=== PATIENT | female | born 1945 | race Caucasian/White ===

== ENCOUNTER → 2017-08-16 | Outpatient (CLI) | payer BC, MEDICARE | END | disposition home or self-care (01) | LOC: CFH 11:16 | PROVIDERS: ATTEND Internal Medicine | DX: E04.2 Nontoxic multinodular goiter (principal); E04.8 Other specified nontoxic goiter; E11.9 Type 2 diabetes mellitus without complications; I10 Essential (primary) hypertension; E78.1 Pure hyperglyceridemia; R09.89 Other specified symptoms and signs involving the circulatory and respiratory systems; K31.7 Polyp of stomach and duodenum; M15.9 Polyosteoarthritis, unspecified; E03.9 Hypothyroidism, unspecified; E04.0 Nontoxic diffuse goiter; H40.009 Preglaucoma, unspecified, unspecified eye; F41.9 Anxiety disorder, unspecified; I06.8 Other rheumatic aortic valve diseases; K21.9 Gastro-esophageal reflux disease without esophagitis | CPT/HCPCS: 76536 ==

== ENCOUNTER → 2017-11-18 | Outpatient (CLI) | payer MEDICARE ==
[~2017-11-18] MED LIST: LIDOCAINE-MPF 1%, 2ML ONE
== END | disposition home or self-care (01) ==
LOC: RAD 08:46
PROVIDERS: ATTEND Internal Medicine
DX: E04.1 Nontoxic single thyroid nodule (principal); E04.0 Nontoxic diffuse goiter; E11.9 Type 2 diabetes mellitus without complications; I10 Essential (primary) hypertension; I06.8 Other rheumatic aortic valve diseases; E78.1 Pure hyperglyceridemia; K21.9 Gastro-esophageal reflux disease without esophagitis; R09.89 Other specified symptoms and signs involving the circulatory and respiratory systems; K31.7 Polyp of stomach and duodenum; M15.9 Polyosteoarthritis, unspecified; E03.9 Hypothyroidism, unspecified; F41.9 Anxiety disorder, unspecified
CPT/HCPCS: 76942; 88112; J3490

== ENCOUNTER → 2017-12-05 | Outpatient (CLI) | payer MEDICARE | END | disposition home or self-care (01) | LOC: RAD 09:14 | PROVIDERS: ATTEND Physician Assistant | DX: E04.0 Nontoxic diffuse goiter (principal); E04.1 Nontoxic single thyroid nodule; I10 Essential (primary) hypertension; I06.8 Other rheumatic aortic valve diseases; E11.9 Type 2 diabetes mellitus without complications; E78.1 Pure hyperglyceridemia; K21.9 Gastro-esophageal reflux disease without esophagitis; K31.7 Polyp of stomach and duodenum; M15.9 Polyosteoarthritis, unspecified; H40.009 Preglaucoma, unspecified, unspecified eye; E03.9 Hypothyroidism, unspecified; F41.9 Anxiety disorder, unspecified | CPT/HCPCS: 76942; 88172; 88173; J3490 ==

== ENCOUNTER → 2019-04-13 | Outpatient (CLI) | payer MEDICARE | END | disposition home or self-care (01) | LOC: CFH 12:24 | PROVIDERS: ATTEND Internal Medicine | DX: E04.2 Nontoxic multinodular goiter (principal); M79.10 Myalgia, unspecified site; I35.0 Nonrheumatic aortic (valve) stenosis; K20.9 Esophagitis, unspecified; I10 Essential (primary) hypertension; E03.9 Hypothyroidism, unspecified; E78.1 Pure hyperglyceridemia | CPT/HCPCS: 76536 ==